=== PATIENT | female | born 1955 | race African-American/Black ===

== ENCOUNTER 2022-08-17 10:20 | Emergency (ER) | payer OTHER ==
[2022-08-17 10:42] VITALS: BMI 29.0
[2022-08-17] MEDS ORDERED: VANCOMYCIN 1 GM in D5W (PRE-DOCKED) 1,000 MG/250 ML IVPB ONE (12:09)
[2022-08-17] MEDS ORDERED: PIPERACILLIN/TAZOB 4.5 GM 4.5 GM in DEXTROSE 5%-WATER 100 ML IVPB ONE (12:09)
[2022-08-17] MEDS ORDERED: PIPERACILLIN/TAZOB 4.5 GM 4.5 GM/100 ML BAG IVPB ONE (12:15)
[2022-08-17] MEDS ORDERED: VANCOMYCIN/WATER FOR INJ (PEG) 1,000 MG/200 ML BAG IVPB ONE (12:15)
[2022-08-17 13:45] LABS: BASO % 0.8 % (0-2.0); EOS % 6.2 % (0-4.5); HEMOGLOBIN 8.9 GM/dL (10.7-15.3); LYMPH % 25.1 % (8-40); MCH 30.3 pg (25.7-33.7); MCHC 32.9 g/dl (32.0-36.0); MEAN CELL VOLUME 92.3 fl (80-96); MEAN PLT VOLUME 8.6 fl (7.5-11.1); MONO % 14.4 % (3.8-10.2); NEUT % 53.5 % (42.8-82.8); PLATELET COUNT 337 10^3/uL (134-434); RBC 2.92 M/mm3 (3.60-5.2); RDW 16.8 % (11.6-15.6)
[2022-08-17 14:03] LABS: CALCIUM 9.5 mg/dL (8.5-10.1)
[2022-08-17 14:04] LABS: BLOOD UREA NITROGEN 18.8 mg/dL (7-18)
[2022-08-17 14:05] LABS: MAGNESIUM 2.2 mg/dL (1.8-2.4)
[2022-08-17 14:07] LABS: CREATININE 1.1 mg/dL (0.55-1.3)
[2022-08-17 14:08] LABS: BILIRUBIN,TOTAL 0.6 mg/dL (0.2-1)
[2022-08-17 14:09] LABS: TOT PROT 7.4 g/dl (6.4-8.2)
[2022-08-17 16:10] VITALS: BP 145/75; PULSE 74; RESP 16; TEMP 98.6
== END 2022-08-17 16:10 | disposition left against medical advice (07) ==
LOC: JER 10:20
DX: L03.115 Cellulitis of right lower limb (principal)
CPT/HCPCS: 36415; 73590-TC-RT-FY; 80053; 83735; 85025; 86140; 87040; 99285-25; A6022; A6196; G0463-25

== ENCOUNTER 2023-08-23 05:07 | Day surgery (SDC) | payer OTHER ==
[2023-08-15 13:17] VITALS: BMI 29.8
[~2023-08-23 05:07] MED LIST: LIDOCAINE HCL 1%, 10 MG/ML (20ML VIAL) INF ONE
[2023-08-23] MEDS ORDERED: LIDOCAINE HCL 1%, 10 MG/ML (20ML VIAL) ONE (07:23)
[2023-08-23] MEDS ORDERED: LIDOCAINE HCL 1%, 10 MG/ML (20ML VIAL) INF ONE (09:08)
[2023-08-23 09:55] VITALS: BP 116/60; PULSE 75; RESP 20; TEMP 97.8
== END 2023-08-23 10:15 | disposition home or self-care (01) ==
LOC: JASU-SURG 05:07
PROVIDERS: ATTEND Orthopaedic Surgery
PROC: 015D3ZZ Destruction of Femoral Nerve, Percutaneous Approach (ICD-10-PCS; principal; 2023-08-23 09:15)
DX: M17.12 Unilateral primary osteoarthritis, left knee (principal)